=== PATIENT | female | born 1985 | race Caucasian/White ===

== ENCOUNTER 2022-09-02 07:14 | Outpatient (REF) | payer OTHER, SELFPAY ==
--- NOTE | ~2022-09-02 | MR_ITS ---
EXAMINATION: MR CERVICAL SPINE WITHOUT CONTRAST CLINICAL INFORMATION: Severe neck pain, progressive with radicular signs. COMPARISON: None available. TECHNIQUE: MRI of the cervical spine was performed using routine sequences without contrast. FINDINGS: There is straightening of the normal cervical lordosis. The vertebral body heights are preserved. There is mild disc height loss at C6-C7. No bone marrow edema is seen. The cervical cord signal appears normal. The imaged intracranial contents and extraspinal soft tissues appear normal. SPINAL LEVELS: C2-C3: No posterior disc abnormality. No spinal canal or neural foraminal stenosis. C3-C4: No posterior disc abnormality. No spinal canal or neural foraminal stenosis. C4-C5: No posterior disc abnormality. No spinal canal or neural foraminal stenosis. C5-C6: Mild disc bulging. No spinal canal or neural foraminal stenosis. C6-C7: Disc bulging with small central protrusion resulting in mild flattening the ventral thecal sac. No spinal canal stenosis. Bilateral uncovertebral hypertrophy. Mild right neural foraminal stenosis. C7-T1: No posterior disc abnormality. No spinal canal or neural foraminal stenosis. MR/MR cervical spine wo con IMPRESSION: At C6-C7 there is disc bulging with small central protrusion resulting in mild flattening of the ventral thecal sac and mild right neural foraminal stenosis. Mild disc bulging seen at C5-C6.
== END 2022-09-02 07:15 | disposition home or self-care (01) ==
LOC: HO.MRI 07:14
PROVIDERS: PCP Internal Medicine; Visit Provider Psychiatry & Neurology Neurology
DX: M50.20 Other cervical disc displacement, unspecified cervical region (principal)
CPT/HCPCS: 72141